=== PATIENT | male | born 1965 | race Caucasian/White ===

== ENCOUNTER 2017-04-24 19:51 | Emergency (ER) | payer MEDICAID ==
[~2017-04-24] VITALS: Ht 177.8 cm; Wt 94.8 kg
[2017-04-24 23:39] VITALS: BP 143/95
== END 2017-04-24 23:10 | disposition home or self-care (01) ==
LOC: EDBD 19:51 → ED 19:51
DX: T83.098A Other mechanical complication of other urinary catheter, initial encounter (principal); R33.8 Other retention of urine

== ENCOUNTER 2018-01-25 06:44 | Inpatient (IN) | payer MEDICAID ==
[~2018-01-25] VITALS: Ht 170.2 cm; Wt 89.5 kg
[2018-01-25 07:57] LABS: PLATELET COUNT 249 x10^3mcL (130-400)
[2018-01-25 07:58] LABS: RED CELL DISTRIBUTION WIDTH 14.6 % (11.5-14.5)
[2018-01-25 08:05] LABS: CALCIUM 8.6 mg/dL (8.5-10.1); CREATININE SERUM 1.5 mg/dL (0.7-1.3); POTASSIUM SERUM 3.3 mmol/L (3.5-5.1)
[2018-01-25 08:11] LABS: BILIRUBIN TOTAL 1.6 mg/dL (0.20-1.00); TOTAL PROTEIN, SERUM 7.9 g/dL (6.4-8.2)
[2018-01-25 08:20] LABS: ALBUMIN 2.9 g/dL (3.4-5.0)
[2018-01-25 09:19] LABS: UA SPECIFIC GRAVITY 1.025 (1.005-1.035); microscopic required? YES; urine erythrocyte 3+ (NEGATIVE)
[2018-01-25 10:15] LABS: BAND NEUTROPHIL 25 % (0-10); BASOPHIL 0 % (0-2); PLATELET MORPHOLOGY PLATELETS NORMAL; SEGMENTED NEUTROPHILS 72 % (37-75)
[2018-01-25 11:03] LABS: CHOLESTEROL/HDL RATIO 3.9; MAGNESIUM 2.1 mg/dL (1.8-2.4); PHOSPHOROUS 3.4 mg/dL (2.5-4.9)
[2018-01-25 11:05] VITALS: BP 121/77
[2018-01-25 11:08] LABS: T3 TOTAL 0.65 ng/mL
[2018-01-25 11:24] VITALS: BP 121/77
[2018-01-25 11:35] LABS: FREE T4 1.19 ng/dL (0.76-1.46); T4(THYROXINE) 5.7 ug/dL (4.7-13.3)
[2018-01-25 17:55] VITALS: BP 114/70
[2018-01-25 20:49] VITALS: BP 111/81
[2018-01-26 05:43] VITALS: BP 129/92
[2018-01-26 06:11] LABS: BASOPHIL % 0.1 % (0-2); PLATELET COUNT 186 x10^3mcL (130-400)
[2018-01-26 06:21] LABS: CALCIUM 8.5 mg/dL (8.5-10.1); CHLORIDE SERUM 99 mmol/L (98-107); GFR1 > 60 mL/min; GLUCOSE SERUM 225 mg/dL (74-106); MAGNESIUM 2.1 mg/dL (1.8-2.4); PHOSPHOROUS 1.5 mg/dL (2.5-4.9); POTASSIUM SERUM 3.5 mmol/L (3.5-5.1); SODIUM SERUM 136 mmol/L (136-145)
[2018-01-26 07:02] LABS: RED CELL DISTRIBUTION WIDTH 14.8 % (11.5-14.5)
[2018-01-26 09:50] VITALS: BP 125/91
[2018-01-26 13:25] VITALS: BP 120/90
[2018-01-26 17:30] VITALS: BP 134/93
[2018-01-26 20:43] VITALS: BP 120/87
[2018-01-27 05:34] VITALS: BP 136/93
[2018-01-27 06:28] LABS: BASOPHIL % 0.1 % (0-2); PLATELET COUNT 192 x10^3mcL (130-400); RED CELL DISTRIBUTION WIDTH 14.5 % (11.5-14.5)
[2018-01-27 06:53] LABS: CALCIUM 8.2 mg/dL (8.5-10.1); CARBON DIOXIDE 27.2 mmol/L (21-32); CHLORIDE SERUM 98 mmol/L (98-107); CREATININE SERUM 0.9 mg/dL (0.7-1.3); GFR1 > 60 mL/min; GLUCOSE SERUM 151 mg/dL (74-106); MAGNESIUM 1.9 mg/dL (1.8-2.4); PHOSPHOROUS 1.8 mg/dL (2.5-4.9); SODIUM SERUM 134 mmol/L (136-145)
[2018-01-27 08:43] VITALS: BP 136/93
[2018-01-27 09:21] VITALS: BP 125/89
[2018-01-27] MEDS ORDERED: APAP/OXYCODONE1 TA4 PO (10:45)
[2018-01-27] MEDS ORDERED: BEN25 PO (10:45)
[2018-01-27] MEDS ORDERED: COL100 PO (10:46)
[2018-01-27] MEDS ORDERED: GLU500 PO (10:47)
[2018-01-27] MEDS ORDERED: LAC PO (10:47)
[2018-01-27] MEDS ORDERED: LEVAQUIN750 MG PO (11:23)
[2018-01-27] MEDS ORDERED: LEVEMIR100 U/M1 SC (11:23)
[2018-01-27] MEDS ORDERED: FLA500 PO (11:23)
[2018-01-27 13:45] VITALS: BP 129/105
[2018-01-27 14:41] LABS: CALCIUM 8.5 mg/dL (8.5-10.1); CARBON DIOXIDE 28.1 mmol/L (21-32); CHLORIDE SERUM 99 mmol/L (98-107); CREATININE SERUM 0.9 mg/dL (0.7-1.3); GFR1 > 60 mL/min; GLUCOSE SERUM 193 mg/dL (74-106); POTASSIUM SERUM 3.4 mmol/L (3.5-5.1); SODIUM SERUM 134 mmol/L (136-145)
[2018-01-28 07:40] VITALS: Ht 170.2 cm; Wt 89.5 kg
== END 2018-01-27 17:00 | disposition home or self-care (01) | DRG 720 ==
LOC: ED 06:44 → DU 09:59
PROVIDERS: Emergency Medicine; Family Medicine
DX: A41.9 Sepsis, unspecified organism (principal); N17.0 Acute kidney failure with tubular necrosis; K63.2 Fistula of intestine; K57.32 Diverticulitis of large intestine without perforation or abscess without bleeding; E11.65 Type 2 diabetes mellitus with hyperglycemia; E27.8 Other specified disorders of adrenal gland; E87.1 Hypo-osmolality and hyponatremia; I10 Essential (primary) hypertension; E87.6 Hypokalemia; N39.0 Urinary tract infection, site not specified; N10 Acute pyelonephritis; E78.1 Pure hyperglyceridemia; R31.9 Hematuria, unspecified; D64.9 Anemia, unspecified; E66.9 Obesity, unspecified; I70.209 Unspecified atherosclerosis of native arteries of extremities, unspecified extremity; E83.39 Other disorders of phosphorus metabolism; Z68.30 Body mass index [BMI] 30.0-30.9, adult
CPT/HCPCS: 82962; 83880; 84439; J1335; J1815; J1885; J1956; J2270; J2405; J2543; J3490; J7030; J7050; Q0092; Q0163